=== PATIENT | male | born 1965 | race Two or more races ===

== ENCOUNTER 2016-10-06 12:58 | Emergency (ER) | payer MEDICAID ==
[~2016-10-06] VITALS: Ht 175.3 cm; Wt 75.7 kg
[2016-10-06] MEDS ORDERED: HYDROCODONE/APAP 5/325MG 1 EACH TABLET ONE (13:17)
[2016-10-06] MEDS: HYDROCODONE/APAP 5/325MG 1 EACH TABLET PO ONE ×2 (13:17→13:22)
[2016-10-06] MEDS ORDERED: IBUPROFEN 600 MG TABLET PO ONE ×2 (13:26→13:30)
[2016-10-06 13:57] VITALS: BP 128/75
== END 2016-10-06 13:58 | disposition home or self-care (01) ==
LOC: ER 13:00
DX: S62.633A Displaced fracture of distal phalanx of left middle finger, initial encounter for closed fracture (principal); W23.1XXA Caught, crushed, jammed, or pinched between stationary objects, initial encounter; Y93.9 Activity, unspecified; Y92.9 Unspecified place or not applicable; Y99.9 Unspecified external cause status
CPT/HCPCS: 29130; 73130; 99284; A4606; Z7610

== ENCOUNTER 2016-10-08 21:05 | Emergency (ER) | payer MEDICAID ==
[~2016-10-08] VITALS: Ht 175.3 cm; Wt 72.6 kg
[2016-10-08 21:19] VITALS: BP 134/88
[2016-10-08] MEDS ORDERED: TDAP [DIPH/PERTUSSIS/TET] 0.5 ML VIAL IM ONE ×2 (21:55→22:00)
== END 2016-10-08 22:04 | disposition home or self-care (01) ==
LOC: ER 21:09
DX: S69.92XA Unspecified injury of left wrist, hand and finger(s), initial encounter (principal); W23.1XXA Caught, crushed, jammed, or pinched between stationary objects, initial encounter; Y93.9 Activity, unspecified; Y92.9 Unspecified place or not applicable; Y99.9 Unspecified external cause status
CPT/HCPCS: 90715; A4606; Z7610

== ENCOUNTER 2017-09-18 15:19 | Emergency (ER) | payer MEDICAID ==
[~2017-09-18] VITALS: Ht 175.3 cm; Wt 72.6 kg
[2017-09-18 15:50] VITALS: BP 127/81
[2017-09-18] MEDS ORDERED: IBUPROFEN 600 MG TABLET PO ONE ×2 (16:14→16:30)
[2017-09-18] MEDS ORDERED: ACETAMINOPHEN 325 MG TABLET ONE ×2 (16:14)
[2017-09-18] MEDS ORDERED: ACETAMINOPHEN 325 MG TABLET PO ONE (16:30)
== END 2017-09-18 16:24 | disposition home or self-care (01) ==
LOC: ER 15:20
DX: B34.9 Viral infection, unspecified (principal); F10.10 Alcohol abuse, uncomplicated
CPT/HCPCS: 87070; 87880; 99284; A4606; Z7610; 86403-TC

== ENCOUNTER 2020-08-07 19:21 | Emergency (ER) | payer MEDICAID ==
[~2020-08-07] VITALS: Ht 175.3 cm; Wt 75.3 kg
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
--- NOTE | 2020-08-07 19:54 | NUR ---
XRAY AT BEDSIDE.
[2020-08-07] MEDS ORDERED: TDAP [DIPH/PERTUSSIS/TET] 0.5 ML VIAL IM ONE ×2 (20:24→20:30)
--- NOTE | 2020-08-07 20:36 | NUR ---
Patient discharged to home in stable condition. Written and verbal after care instructions given. Patient verbalizes understanding of instruction.
[2020-08-07 20:52] VITALS: BP 132/84
== END 2020-08-07 20:36 | disposition home or self-care (01) ==
LOC: ER 19:24
DX: S91.331A Puncture wound without foreign body, right foot, initial encounter (principal); L03.115 Cellulitis of right lower limb; W22.8XXA Striking against or struck by other objects, initial encounter; Y93.89 Activity, other specified; Y92.89 Other specified places as the place of occurrence of the external cause; Y99.8 Other external cause status
CPT/HCPCS: 73630-TC; 90715